=== PATIENT | female | born 1935 | race Caucasian/White ===

== ENCOUNTER → 2020-08-31 | Outpatient (CLI) | payer MEDICARE ==
--- NOTE | 2020-08-31 22:46 | MR ---
EXAMINATION TYPE: MR shoulder LT wo con DATE OF EXAM: 08/31/2020 COMPARISON: No comparison images at this location. HISTORY: Left shoulder pain, rotator cuff tear Technique: Multiplanar, multiecho imaging on a 3.0 Talia magnet is performed through the shoulder. Findings: Long head of the biceps tendon is within the bicipital groove. Moderate joint effusion is present. Glenoid labrum is small. Superior glenoid labral tear is likely present. There is elevation of the humeral head in relation to the glenoid. There is loss of the acro mial humeral joint space. Fluid is within the subacromial bursa and subdeltoid bursa. There is comple te tear of the supraspinatus tendon with retraction to the acromioclavicular junction level. There ma y be a few anterior fibers which may be intact. There is some atrophy of the supraspinatus muscle. Significant fatty infiltration however is not evid ent. Bursitis muscle appears intact. Teres minor and subscapularis muscles abnormal signal. There is increased signal within the humeral neck extending into the shaft of the humerus. There is a n impacted fracture of the humerus and humeral head. Plain film correlation is recommended. There are no plain films at this location. IMPRESSIONS: 1. Fracture of the humeral neck with impaction into the humeral head. Plain film correlation is recom mended. 2. This humeral neck fracture could be a pathologic fracture with increased signal extending into the proximal diaphysis of the humerus. 3. Appears to be complete tear of the supraspinatus tendon with retraction. This could be a partial l arge tear with a few fibers which may remain present anteriorly
== END | disposition home or self-care (01) ==
LOC: RADMRIMAIN 15:50
PROVIDERS: ATTEND Orthopaedic Surgery
DX: S42.292A Other displaced fracture of upper end of left humerus, initial encounter for closed fracture (principal); M75.122 Complete rotator cuff tear or rupture of left shoulder, not specified as traumatic